=== PATIENT | female | born 1995 | race Caucasian/White ===

== ENCOUNTER 2018-06-16 08:00 | Outpatient (CLI) | payer MEDICAID ==
[2013-12-28 02:09] VITALS: Ht 162.6 cm; Wt 84.4 kg
[~2018-06-16] VITALS: Ht 162.6 cm; Wt 84.4 kg
[~2018-06-16 08:00] MED LIST: IBUPROFEN600 MG PO; PAMELOR 25 MG C25 MG PO; PERCOCET 5-3251 TAB PO; PRENATAL COMPLE1 TAB PO
[2018-06-16] MEDS ORDERED: AMITRIPTYLINE100 MG PO (10:05)
[2018-06-16] MEDS ORDERED: LITHIUM CARBON300 M3 PO (10:05)
[2018-06-16] MEDS ORDERED: SEROQUEL100 MG PO (10:06)
[2018-06-16] MEDS ORDERED: KLONOPIN1 MG PO (10:06)
[2018-06-16] MEDS ORDERED: LAMICTAL200 M1 PO (10:06)
[2018-06-16] MEDS ORDERED: NEURONTIN 300300 MG PO (10:07)
[2018-06-16] MEDS ORDERED: BYSTOLIC5 MG PO (10:09)
[2018-06-16 10:34] LABS: BASOPHILS 0.2 % (0-2); EOSINOPHILS 1.6 % (0-7); HEMATOCRIT 40.9 % (36.0-48.0); HEMOGLOBIN 13.5 g/dL (12-16); IMMATURE GRANULOCYTES 0.3 % (0-5); LYMPHOCYTES 23.3 % (15-50); MCH 30.5 pg (26.0-34.0); MCV 92.5 fL (80.0-100.0); MEAN PLATELET VOLUME 9.2 fL (7.4-10.4); MONOCYTES 6.5 % (2-11); NEUTROPHILS 68.1 % (40-80); RBC 4.42 10x6/uL (4.00-5.40); RDW 12.9 % (11.5-14.5); WBC 11.7 10x3/uL (4.8-10.8)
[2018-06-16 10:35] LABS: PLATELET COUNT 329 10x3/uL (130-400)
== END 2018-06-16 08:01 | disposition home or self-care (01) ==
LOC: D.OPS 08:00 → EDSTATUS 06-19 08:15 → D.OPS 06-19 08:15 → D.PAN 06-19 08:15 → D.OPS 06-19 09:30
PROVIDERS: ATTEND Obstetrics & Gynecology
DX: Z53.9 Procedure and treatment not carried out, unspecified reason (principal)

== ENCOUNTER 2018-11-27 08:00 | Day surgery (SDC) | payer MEDICAID ==
[2018-11-24 10:48] LABS: BASOPHILS 0.2 % (0-2); EOSINOPHILS 2.2 % (0-7); HEMATOCRIT 39.2 % (36.0-48.0); HEMOGLOBIN 13.4 g/dL (12-16); IMMATURE GRANULOCYTES 0.1 % (0-5); LYMPHOCYTES 30.9 % (15-50); MCH 32.1 pg (26.0-34.0); MCHC 34.2 g/dL (31.0-37.0); MEAN PLATELET VOLUME 9.2 fL (7.4-10.4); NEUTROPHILS 61.6 % (40-80); PLATELET COUNT 271 10x3/uL (130-400); RBC 4.17 10x6/uL (4.00-5.40); RDW 12.7 % (11.5-14.5); WBC 9.9 10x3/uL (4.8-10.8)
[~2018-11-27] VITALS: Ht 162.6 cm; Wt 78.0 kg
[~2018-11-27 08:00] MED LIST changes: +AMITRIPTYLINE100 MG PO; +BYSTOLIC5 MG PO; +KLONOPIN1 MG PO; +LAMICTAL200 M1 PO; +LITHIUM CARBON300 M3 PO; +NEURONTIN 300300 MG PO; +SEROQUEL100 MG PO
[2018-11-27] MEDS ORDERED: ADIPEX-P37.5 M1 PO (09:45)
[2018-11-27 09:46] VITALS: BP 102/68; Ht 162.6 cm; Wt 78.0 kg
[2018-11-27 10:15] LABS: HCG URINE NEGATIVE (NEGATIVE)
--- NOTE | 2018-11-27 15:18 | NUR ---
MESH UNDERWARE ON OVER PERIPAD ON ADMIT
--- NOTE | 2018-11-29 06:43 | OP ---
PATIENT NAME: JESUS CHAPA MEDICAL RECORD: [id number] :93 LOCATION:D.OPS ADMISSION DATE: SURGEON: STEPHANI DOMINGUEZ MD DATE OF OPERATION: 11/27/2018 PREOPERATIVE DIAGNOSIS: Unwanted fertility. POSTOPERATIVE DIAGNOSIS: Unwanted fertility. PROCEDURE: Bilateral tubal occlusion using Falope rings. SURGEON: Stephani Dominguez MD SOLDER TECHNICIAN: Michael Poole. ANESTHESIA: General. FINDINGS: Unremarkable uterus, tubes, and ovaries bilaterally. SPECIMENS REMOVED: Not applicable. ESTIMATED BLOOD LOSS: Minimal. FLUIDS: 1 liter of Lactated Ringer's. URINE OUTPUT: Quantity insufficient void prior to this procedure. COMPLICATIONS: None. DRAINS: None. INDICATIONS: The patient is a 23-year-old multiparous female with unwanted fertility. The patient understands alternatives to sterilization. The patient understands the possibility of ectopic gestation and the need for treatment if that was to occur. DESCRIPTION OF PROCEDURE: After informed consent was assured, the patient was taken to the operating room where anesthetic was obtained. The patient was then prepped and draped. Incision was made at the umbilicus to accommodate a 5-mm trocar. Pneumoperitoneum was developed. The patient was placed in Trendelenburg position. An 8 mm port was now placed in the right lower quadrant. Through this port, a blunt probe was used to sweep the bowel free of the pelvis with the above findings. A Falope ring applicator was doubly loaded and inserted into the pelvis. The left tube was followed to its fimbriated end and an aspect of the isthmic portion of the tube was selected and a Silastic band applied. This was repeated on the contralateral side. Once this has been performed, a 10 mL syringe with 0.25% Marcaine without epinephrine was placed over the gas port and 5 mL of Marcaine was placed directly over both right and left tube. The 8-mm port is now utilized to release the gas from the abdomen. Once the pneumoperitoneum has been released, the accessory port and primary port was removed. All sites were closed with a subcuticular stitch and Dermabond applied. Sponge, lap, and needle counts correct times 2. The patient went to the recovery area in stable condition. TRANSINT:[id number] Voice Confirmation ID: [id number] DOCUMENT ID: [id number] OPERATIVE REPORT [id number] JESUS CHAPA STEPHANI DOMINGUEZ MD at 0643 CC: [id number] DICTATION DATE: 11/27/18 1429 POOL HALL INSPECTOR: 11/27/18 1813 [facility] [place] 11/27/18 [address] [place] [address]
== END 2018-11-27 16:40 | disposition home or self-care (01) ==
LOC: D.OPS 08:00 → D.PAN 09:40 → D.OPS 09:45 → D.PAN 09:45 → D.OPS 10:00 → D.PAN 10:00 → D.OPS 12:10
PROVIDERS: ATTEND Obstetrics & Gynecology
DX: Z30.2 Encounter for sterilization (principal); Z01.812 Encounter for preprocedural laboratory examination

== ENCOUNTER 2019-11-16 12:43 | Emergency (ER) | payer OTHER ==
[~2019-11-16] VITALS: Ht 162.6 cm; Wt 63.6 kg
[~2019-11-16 12:43] MED LIST changes: +ADIPEX-P37.5 M1 PO
[2019-11-16 12:50] VITALS: BP 111/76; Ht 162.6 cm; Wt 63.6 kg
[2019-11-16] MEDS ORDERED: COREG 3.1253.125 MG PO (12:52)
== END 2019-11-16 15:34 | disposition home or self-care (01) ==
LOC: D.ER 12:43
DX: S51.812A Laceration without foreign body of left forearm, initial encounter (principal); W26.0XXA Contact with knife, initial encounter; K21.9 Gastro-esophageal reflux disease without esophagitis; F32.9 Major depressive disorder, single episode, unspecified

== ENCOUNTER 2020-08-18 15:58 | Inpatient (IN) | payer OTHER ==
[~2020-08-18] VITALS: Ht 162.6 cm; Wt 77.3 kg
[2020-08-18] VITALS (7 sets, daily range): BP systolic 120–130; BP diastolic 66–101
[~2020-08-18 15:58] MED LIST changes: +COREG 3.1253.125 MG PO; +DICLOFENAC SODI50 MG PO
[2020-08-18 17:46] LABS: BASOPHILS 0.3 % (0-2); EOSINOPHILS 1.9 % (0-7); HEMATOCRIT 42.3 % (36.0-48.0); HEMOGLOBIN 14.5 g/dL (12-16); LYMPHOCYTES 26.3 % (15-50); MCH 32.6 pg (26.0-34.0); MCHC 34.2 g/dL (31.0-37.0); MCV 95.4 fL (80.0-100.0); MONOCYTES 3.9 % (2-11); NEUTROPHILS 67.6 % (40-80); PLATELET COUNT 305 10x3/uL (130-400); RBC 4.44 10x6/uL (4.00-5.40); WBC 8.9 10x3/uL (4.8-10.8)
[2020-08-18 18:01] LABS: APTT 25.5 SECONDS (22.8-39.4); INR 1.09 (0.85-1.17)
[2020-08-18 18:07] LABS: CALC OSMOLALITY 278 mosm/kg (275-300); CALCIUM 8.8 mg/dL (8.5-10.1); CARBON DIOXIDE 24.7 mmol/L (21.0-32.0); CHLORIDE - SERUM 105 mmol/L (98-107); CREATININE - SERUM 0.8 mg/dL (0.6-1.3); GLUCOSE 84 mg/dL (74-106); POTASSIUM - SERUM 3.2 mmol/L (3.5-5.1); SODIUM 141 mmol/L (136-145); UREA NITROGEN 9 mg/dL (7-18); eGFR NON AFRICAN AMERICAN > 90 mL/min (90-120)
[2020-08-18 18:09] LABS: LITHIUM 0.95 mmol/L (0.60-1.20); SALICYLATES 2.7 mg/dL (2.8-20.0)
[2020-08-18 18:11] LABS: ALBUMIN 4.1 g/dL (3.4-5.0); ALKALINE PHOSPHATASE 91 U/L (30-120); ALT (SGPT) 23 U/L (10-68); BILIRUBIN - TOTAL 0.27 mg/dL (0.2-1.3); PROTEIN - SERUM 7.5 g/dL (6.4-8.2)
--- NOTE | 2020-08-18 19:45 | NUR ---
RECEIVED PT FROM RECOVERY ROOM, A&O X4. PIV TO RIGHT FOREARM, PATENT AND INFUSING, NO REDNESS OR SWELLING. LACERATION TO LUE, WOUND CLOSED, DRSG C/D/I, MISTY WRAP IN PLACE. PT ABLE TO AMBUALTE AD ASHLEY. EDUCATED ON SUICIDE PRECAUTIONS AND CL AND NEEDS, VERBALIZED UNDERSTANDING. BED LOW, CL IN REACH.
[2020-08-18 20:13] LABS: BILIRUBIN NEGATIVE (NEGATIVE); HCG URINE NEGATIVE (NEGATIVE); KETONE NEGATIVE (NEGATIVE); NITRITE NEGATIVE (NEGATIVE); UROBILINOGEN NORMAL mg/dL (< 2)
--- NOTE | 2020-08-18 20:15 | NUR ---
PT C/O OF WANTING TO GO HOME NOW, STATES THAT WE CANNOT KEEP HER HERE AGAINST HER WILL. SHE IS VERY UPSET AND ARGUMENTATIVE. I EDUCATED PT ON THE HOSPITAL POLICIES ON SUICIDE ATTEMPTS AND OUR RESPONSILBILITIES. SHE IS ADAMENT ON LEAVING NOW. CALLED LIO GALAN. LIO TALKED TO PT AND EXPLAINED OUR POLICY AND WHY SHE HAS TO STAY TONIGHT. WE MADE AN EXCEPTION AND ALLOWED HER MOTHER TO COME AND STAY THE NIGHT WITH HER. MD ONEIL ALSO TALKED TO PT AND EXPLAINED SITUATION AND OUR RESPONSIBILITY AFTER A SUICIDE ATTEMPT. PT IS STILL IRRIATATED AND RUDE TO THIS NURSE, FRANSISCO STEWARD AND MD ONEIL. SHE AGREES TO STAY THE NIGHT AND TALK TO PSYCH MD IN THE AM, ALTHOUGH SHE STRESSES THAT SHE IS NOT HAPPY ABOUT IT.
[2020-08-18 20:18] LABS: UDS - AMPHET NEGATIVE QUAL (NEGATIVE); UDS - BARB NEGATIVE QUAL (NEGATIVE); UDS - BENZO NEGATIVE QUAL (NEGATIVE); UDS - COCAINE NEGATIVE QUAL (NEGATIVE); UDS - OPIATE NEGATIVE QUAL (NEGATIVE); UDS - PCP NEGATIVE QUAL (NEGATIVE); UDS - THC POSITIVE QUAL (NEGATIVE)
[2020-08-19 00:05] VITALS: BP 126/83; Ht 162.6 cm; Wt 77.3 kg
[2020-08-19 04:30] VITALS: BP 97/56
--- NOTE | 2020-08-19 05:41 | NUR ---
PT REFUSES TO WEAR DIESEL SERVICE TECHNICIAN. EDUCATED AND STILL REFUSED. PT STATES THAT SHE WILL BE GOING HOME TODAY AND DOESNT NEED ANYTHING ELSE ON HER. BED LOW, CL IN REACH. SITTER OUTSIDE OF ROOM IN VIEW.
[2020-08-19 07:16] LABS: BASOPHILS 0.3 % (0-2); EOSINOPHILS 2.5 % (0-7); HEMATOCRIT 35.7 % (36.0-48.0); HEMOGLOBIN 12.5 g/dL (12-16); MCH 32.9 pg (26.0-34.0); MCHC 34.9 g/dL (31.0-37.0); MCV 94.2 fL (80.0-100.0); MEAN PLATELET VOLUME 7.3 fL (7.4-10.4); MONOCYTES 7.3 % (2-11); NEUTROPHILS 60.9 % (40-80); PLATELET COUNT 272 10x3/uL (130-400); RBC 3.78 10x6/uL (4.00-5.40); RDW 12.3 % (11.5-14.5); WBC 8.7 10x3/uL (4.8-10.8)
[2020-08-19 07:20] LABS: ALBUMIN 3.3 g/dL (3.4-5.0); ALKALINE PHOSPHATASE 74 U/L (30-120); ALT (SGPT) 18 U/L (10-68); BILIRUBIN - TOTAL 0.69 mg/dL (0.2-1.3); CALC OSMOLALITY 277 mosm/kg (275-300); CALCIUM 7.9 mg/dL (8.5-10.1); CARBON DIOXIDE 24.3 mmol/L (21.0-32.0); CHLORIDE - SERUM 108 mmol/L (98-107); CREATININE - SERUM 0.7 mg/dL (0.6-1.3); GLUCOSE 96 mg/dL (74-106); MAGNESIUM - SERUM 1.9 mg/dL (1.8-2.4); PROTEIN - SERUM 6.1 g/dL (6.4-8.2); SODIUM 140 mmol/L (136-145); UREA NITROGEN 10 mg/dL (7-18); eGFR NON AFRICAN AMERICAN > 90 mL/min (90-120)
[2020-08-19 07:25] LABS: POTASSIUM - SERUM 3.7 mmol/L (3.5-5.1)
--- NOTE | 2020-08-19 08:05 | NUR ---
AWAKE AND ALERT. ORIENTED X3. NO C/O AT THIS TIME. LUNGS ARE CLEAR BILATERALLY, NO COUGH NOTED. SKIN IS INTACT WITHOUT REDNESS EXCEPT INCISION TO LEFT FOREARM WHICH HAS A DRY INTACT DRESSING IN PLACE. CAP REFILL IS BRISK, MOVES DIGITS FREELY. IV TO RIGHT AC AREA IS PATENT WITHOUT REDNESS AT INSERTION SITE. DENIES NEEDS.
[2020-08-19 08:56] VITALS: BP 109/68
--- NOTE | 2020-08-19 10:05 | NUR ---
REQUESTED AND GIVEN 650MG TYLENOL PO FOR C/O LEFT ARM. WILL MONITOR.
--- NOTE | 2020-08-19 10:05 | NUR ---
ATE MOST OF BREAKFAST TRAY. NO MEDS AT THIS TIME. DENIES NEEDS.
[2020-08-19 11:59] VITALS: BP 106/62
--- NOTE | 2020-08-19 12:30 | NUR ---
LUNCH SERVED IN ROOM. FEEDS SELF WITH SOME SET UP ASSIST. DENIES NEEDS.
--- NOTE | 2020-08-19 12:47 | NUR ---
SPOKE WITH DR. ONEIL RE PAIN MEDS. NEW ORDERS RECEIVED. REQUESTED AND GIVEN 5MG HYDORCODONE PO FOR C/O LEFT ARM PAIN LEVEL 9. WILL MONITOR.
--- NOTE | 2020-08-19 15:23 | NUR ---
RESTING QUIETLY IN BED. DENIES NEEDS. REPORTS GOOD RELEIF FROM HYDRO EARLIER. WILL CONTINUE TO MONITOR.
[2020-08-19 17:00] VITALS: BP 114/74
--- NOTE | 2020-08-19 17:00 | NUR ---
UP TO SHOWER WITH SET UP ASSIST. BEHAVING WELL TODAY. ALLOWED TO CALL MOTHER FOR 5 MINUTES. NO CHANGES NOTED. DENIES NEEDS.
[2020-08-19 19:35] VITALS: BP 117/74
--- NOTE | 2020-08-20 02:49 | NUR ---
I have reviewed this patient and I concur with the Shift Assessment completed by the Licensed Practical Nurse today this shift.
[2020-08-20 05:15] VITALS: BP 110/65
[2020-08-20 06:38] LABS: BASOPHILS 0.4 % (0-2); EOSINOPHILS 2.8 % (0-7); HEMATOCRIT 36.3 % (36.0-48.0); HEMOGLOBIN 12.3 g/dL (12-16); LYMPHOCYTES 42.8 % (15-50); MCH 32.5 pg (26.0-34.0); MCV 95.7 fL (80.0-100.0); MEAN PLATELET VOLUME 7.4 fL (7.4-10.4); MONOCYTES 6.4 % (2-11); NEUTROPHILS 47.6 % (40-80); PLATELET COUNT 252 10x3/uL (130-400); RBC 3.79 10x6/uL (4.00-5.40); RDW 12.2 % (11.5-14.5)
[2020-08-20 06:58] LABS: ALBUMIN 3.1 g/dL (3.4-5.0); ALKALINE PHOSPHATASE 80 U/L (30-120); ALT (SGPT) 18 U/L (10-68); BILIRUBIN - TOTAL 0.32 mg/dL (0.2-1.3); CALC OSMOLALITY 283 mosm/kg (275-300); CALCIUM 8.3 mg/dL (8.5-10.1); CHLORIDE - SERUM 111 mmol/L (98-107); CREATININE - SERUM 0.6 mg/dL (0.6-1.3); GLUCOSE 92 mg/dL (74-106); POTASSIUM - SERUM 3.8 mmol/L (3.5-5.1); PROTEIN - SERUM 6.2 g/dL (6.4-8.2); SODIUM 143 mmol/L (136-145); UREA NITROGEN 9 mg/dL (7-18); eGFR NON AFRICAN AMERICAN > 90 mL/min (90-120)
[2020-08-20 08:11] VITALS: BP 102/65
--- NOTE | 2020-08-20 09:41 | NUR ---
PATIENT C/O MISTY WRAP ON LEFT ARM TOO TIGHT. CATEGORY PLANNERAjay RUSSO IN ROOM REMOVED DRSG. ALL PULSES IN LEFT ARM STRONG. ASSESSMENT OF INCISION SITE COMPLETED BY CATEGORY PLANNER IN ROOM AND ARM REDRESSED. PATIENT DENIES FURTHER NEEDS.
--- NOTE | 2020-08-20 09:56 | OP ---
PATIENT NAME: JESUS CHAPA MEDICAL RECORD: [id number] :93 LOCATION:D.MS [id number] ADMISSION DATE:08/18/20 SURGEON: EARL ONEIL MD DATE OF OPERATION: 08/18/2020 PREOPERATIVE DIAGNOSIS: Self-inflicted laceration to the volar surface of the left forearm. POSTOPERATIVE DIAGNOSES: Self-inflicted laceration to the volar surface of the left forearm with partial transection of 2 muscle bundles. PROCEDURE: Exploration of forearm muscular repair and repair of laceration. The patient has sensory defect involving the volar surface of the left forearm distal to the laceration. I think this is likely due to a laceration of a sensory or sensory nerves. This is likely not going to be repairable and I was unable to identify the nerves during this repair. The length of the laceration is 7.2 cm and has a transverse laceration of the volar surface of the left proximal forearm. OPERATIVE COURSE: The patient was conveyed to the operating room electively, maybe urgently on 08/18/2020. General anesthesia was induced by the anesthesia staff. The patient's left upper extremity was abducted at 90 degrees to the patient's trunk. The left upper extremity was sterilely prepped and draped. The wrist was supinated. I explored the wound. There were 2 muscle bundles likely the pronator and the supinator that were partially transected. I repaired the muscular fascia with interrupted horizontal mattress 3-0 Vicryls. Again, the wound was further repaired. The subdermis was approximated with interrupted 2-0 Vicryls. The skin was approximated with multiple interrupted horizontal mattress 2-0 nylons. A sterile dressing was applied. The patient was then placed in a splint. The patient was then extubated and conveyed to post-anesthesia care unit where she was in stable condition. She is going to be admitted overnight and the hospitalist service will be consulted. Her primary care physician is Dr. Palacios. I will plan for a psychiatry consultation as well. TRANSINT:[id number] Voice Confirmation ID: [id number] DOCUMENT ID: [id number] EARL ONEIL MD at 0956 CC: [id number] DICTATION DATE: 08/18/201920 BUNDLE SORTER: 08/18/202242 ADM IN [facility] [address] [id number]
--- NOTE | 2020-08-20 09:56 | HP ---
PATIENT: JESUS CHAPA MEDICAL RECORD: [id number] ACCOUNT: [id number] LOCATION:D.MS Colon3 : 93 ADMISSION DATE: 08/18/20 PCP: No PCP HISTORY AND PHYSICAL EXAMINATION HISTORY OF PRESENT ILLNESS: The patient presents to the Emergency Room with a transverse laceration to the left forearm. There was very little bleeding. She does complain of some numbness on the volar surface of the left forearm distal to this, which likely is an injury to the antebrachial nerve. This likely will not improve. This was a suicide attempt. This has been a repeat occurrence. She has a history of bipolar disorder as well as being suicidal. The patient has good flexion and extension of the left fingers. She has good opponens function in the left hand. Good flexion and extension of the left wrist. Good supinator function, but a little weak in pronation. Good flexion and extension at the left elbow. We are planning for operative repair. It appears that she did injure a muscle bundle. Plan for a washout in the operating room and repair. The patient's interaction with me was dissatisfactory. I have attempted to recover our interaction from that dissatisfactory experience, but I do not think is going to happen. The entire history and examination was performed in the presence of several nurses. The risks, possible complications, and alternatives of the procedure were explained to the patient. She elects to proceed. The discussion specifically included, but was not limited to, bleeding requiring emergency reoperation, infection, nerve injury. PHYSICAL EXAMINATION: GENERAL: The patient does not appear acutely ill. She does not appear chronically ill. VITAL SIGNS: Reviewed. EARS: External ears appear normal. EYES: Extraocular movements are intact. NECK: Trachea midline. CHEST: No intercostal retractions. PULMONARY: Nonlabored. No stridor. EXTREMITIES: As described above. The patient has good pulses at the left wrist, in the radial artery as well as in the ulnar artery. There is no arterial bleeding in the left upper extremity. Actually very little venous bleeding as well. There is a scar near the patient's current transverse self-inflicted incision and this is from a prior cutting or suicide attempt. HOME MEDICINES: Reviewed. REVIEW OF SYSTEMS: Negative other than as described above. IMPRESSION: Suicide attempt with transverse laceration to the left forearm that HISTORY AND PHYSICAL [id number] JESUS CHAPA goes down to and into a muscle bundle. There appears to be a peripheral sensory nerve injury as well, which likely will not be able to be repaired. PLAN: Will be irrigation and closure in the operating room. TRANSINT:[id number] Voice Confirmation ID: [id number] DOCUMENT ID: [id number] EARL ONEIL MD at 0956 CC: DI MURPHY MD [id number] DICTATION DATE: 08/18/201750 ELECTRO MECHANICAL TECHNOLOGIST: 08/18/[address] [address] [facility] [address] [id number]
[2020-08-20 12:25] VITALS: BP 111/71
--- NOTE | 2020-08-20 12:46 | CN ---
PATIENT NAME:JESUS CHAPA MEDICAL RECORD: [id number] : 93 LOCATION:D.MS Colon3 ADMIT DATE: 08/18/20 ACCOUNT: [id number] CONSULTING PHYSICIAN: KATELYN MUÑIZ MD REFERRING PHYSICIAN: EARL ONEIL MD DATE OF CONSULTATION: 08/19/2020 IDENTIFYING DATA: The patient is 25 years old and she was admitted to the hospital secondary to a self-inflicted laceration to her left forearm. CHIEF COMPLAINT: None. HISTORY OF PRESENT ILLNESS: The patient is dismissive about the entire event. She talks with me politely until I told her that I am not going to allow her to just go home, at which point she becomes slightly belligerent and rude. She has a long history of mental illness, history of bipolar disorder, and multiple suicidal attempts. She tells me that this is just something that happens periodically and that she did not intend to cut herself so deeply. The laceration required surgical repair and the impression of the surgeon is that this is probably will lead to some permanent nerve damage. She wants me to just discharge her and let her go home, saying that she does not think inpatient care has ever helped her. She also wants adjustments in her medication. ASSESSMENT: 1. Bipolar disorder. 2. Self-inflicted wound to the left forearm. PLAN: The patient is chronically mentally ill with a history of suicide attempts. She has been hospitalized in the past. Apparently, she is on disability for mental illness. I think the most reasonable course of action would be an inpatient stay. She tells me she does not want to go back to a [facility], but I have informed her that placement will be based on the closest accepting facility. The patient should be kept 1:1 with a sitter until medically stabilized and placement can be arranged. TRANSINT:[id number] Voice Confirmation ID: [id number] DOCUMENT ID: [id number] KATELYN MUÑIZ MD at 1246 CC: [id number] DICTATION DATE: 08/19/20 1616 SECURITY OFFICER: 08/19/20 1635 ADM IN [id number] [place] [address]
--- NOTE | 2020-08-20 14:10 | MORECARE ---
CASE MANAGEMENT DISCHARGE SUMMARY PATIENT: JESUS CHAPA UNIT: [id number] ADM DATE: 08/18/20 AGE: 25 : 93 SEX: F [facility] AUTHOR: PAWAN,DOC PHYSICIAN: REFERRING PHYSICIAN: EARL ONEIL MD DATE OF SERVICE: 08/20/20 Case Management Discharge Planning Summary DCP REVIEW SUMMARY ANTICIPATED D/C DATE: EXPECTED LOS : CASE STATUS: DCP Initiated INITIAL REVIEW: 08/18/2020 INITIAL REVIEWER: Jess Jack FINAL DISCHARGE DISPOSITION: : FINAL REVIEWER: FINAL REVIEW DATE: DCP Focus Questions & Answers QUESTION: ANSWER : PATIENT: JESUS CHAPA ENCOUNTER: [id number] MEDICAL RECORD#: [id number] ADMISSION DATE: 08/18/2020 DISCHARGE DATE: ATTENDING MD: EARL CLEMENTS : AGE: 25 MARITAL STATUS: S DC PLAN ID: [id number] FACILITY: [facility] PRINTED ON: 08/20/20 14:10 CT All edits/amendments must be made on the electronic document DICTATION DATE: 08/20/20 141 MARKSMANSHIP INSTRUCTOR: DM 08/20/20 1410 RPT#: [id number] DC DATE: STATUS: ADM IN [facility] [address] [place] [address] END OF REPORT
--- NOTE | 2020-08-20 14:27 | NUR ---
OK TO LEAVE OUT IV PER PAUL RUSSO.
--- NOTE | 2020-08-20 14:28 | NUR ---
NEW ORDER PLACED FOR ONE TIME NICOTINE PATCH PER PAUL RUSSO, D/T CAME OFF IN SHOWER.
--- NOTE | 2020-08-20 14:35 | MORECARE ---
CASE MANAGEMENT DISCHARGE SUMMARY PATIENT: JESUS CHAPA UNIT: [id number] ADM DATE: 08/18/20 AGE: 25 : 93 SEX: F ROOM/BED: D.2213 AUTHOR: ALANIS VILLALTA PHYSICIAN: REFERRING PHYSICIAN: EARL ONEIL MD DATE OF SERVICE: 08/20/20 Case Management Discharge Planning Summary COMMENTS ENTERED DATE: 08/20/20 14:15 CT COMMENT TYPE: Discharge Planning REVIEWER: Jess Jack CM met with patient to complete initial dc planning assessment. CM educated patient on the CM role and verbal consent given by patient to complete assessment. Patient lives at home with her and her 2 kids (6&3). She stated that she would like to go home and does not need inpatient psych. She said that this incident scared her and she realizes that she has a reason to live. She stated that she use to think that her kids just needed their dad, but since she stated that they have been crying for her and she knows that they need both parents. She stated that her and her have been together for 10 years and recently just moved into a brand new home. She states that Dr Palacios is her PCP. She states she see's Alysa at [facility] ( but only twice) because they keep witching her mental health person. She usually see's her once a month. She also see's Mary Beth Ahn her Therapist 2 times a month but has now asked to see him once a week. She has spoken to her about him giving her the medications. She can't keep up with them and then forgets to take them . She said that when she gets off her medications she gets bad. She was in [facility] back in 2019 and has been in [facility] back in 2016. She stated that she has a great relationship with her mom and dad. She they live around the corner. Her sister and brother in law live close by . She feels that she has a good support system. She really feels that she is safe to discharge home. I explained to her that I would call Dr Thompson and share her feelings now, but ultimately the MD will decide what and where she goes. IF she has to go to an inpatient psych, [facility] would be her choice because it is local. Patient denied known discharge needs at this time. She continues to have a 1:1 sitter. CM will continue to follow and will assist as needed with dc plans/needs. DCP REVIEW SUMMARY ANTICIPATED D/C DATE: EXPECTED LOS : CASE STATUS: DCP Initiated INITIAL REVIEW: 08/18/2020 INITIAL REVIEWER: Jess Jack FINAL DISCHARGE DISPOSITION: : FINAL REVIEWER: FINAL REVIEW DATE: DCP Focus Questions & Answers QUESTION: ANSWER : PATIENT: JESUS CHAPA ENCOUNTER: [id number] MEDICAL RECORD#: [id number] ADMISSION DATE: 08/18/2020 DISCHARGE DATE: ATTENDING MD: EARL CLEMENTS : AGE: 25 MARITAL STATUS: S DC PLAN ID: [id number] FACILITY: [facility] PRINTED ON: 08/20/20 14:34 CT All edits/amendments must be made on the electronic document DICTATION DATE: 08/20/201433 BOAT WASHER: BENI 08/20/20 143 RPT#: [id number] DC DATE: STATUS: ADM IN [facility] [address] [place] [address] END OF REPORT
[2020-08-20 16:19] VITALS: BP 95/74
--- NOTE | 2020-08-20 19:45 | NUR ---
RECEIVED BEDSIDE REPORT. PT LAYING IN BED A&O X4. INCISION TO QIANA HOLLIDAY C/D/I. PT ABLE TO AMBUALTE AD ASHLEY. EDUCATED PT ON CL AND NEEDS, VERBALIED UNDERSTANDING. BED LOW, CL IN REACH.
[2020-08-20 20:00] VITALS: BP 124/80
[2020-08-21 04:00] VITALS: BP 106/75
[2020-08-21 06:23] LABS: BASOPHILS 0.3 % (0-2); EOSINOPHILS 3.3 % (0-7); HEMOGLOBIN 13.5 g/dL (12-16); LYMPHOCYTES 38.8 % (15-50); MCH 32.7 pg (26.0-34.0); MCHC 33.8 g/dL (31.0-37.0); MCV 96.8 fL (80.0-100.0); MEAN PLATELET VOLUME 7.5 fL (7.4-10.4); MONOCYTES 6.1 % (2-11); NEUTROPHILS 51.5 % (40-80); PLATELET COUNT 261 10x3/uL (130-400); RBC 4.13 10x6/uL (4.00-5.40); RDW 12.4 % (11.5-14.5); WBC 7.7 10x3/uL (4.8-10.8)
[2020-08-21 06:45] LABS: ALBUMIN 3.6 g/dL (3.4-5.0); ALKALINE PHOSPHATASE 83 U/L (30-120); ALT (SGPT) 16 U/L (10-68); BILIRUBIN - TOTAL 0.37 mg/dL (0.2-1.3); CALC OSMOLALITY 277 mosm/kg (275-300); CALCIUM 9.2 mg/dL (8.5-10.1); CARBON DIOXIDE 25.1 mmol/L (21.0-32.0); CHLORIDE - SERUM 106 mmol/L (98-107); CREATININE - SERUM 0.7 mg/dL (0.6-1.3); GLUCOSE 90 mg/dL (74-106); MAGNESIUM - SERUM 2.1 mg/dL (1.8-2.4); POTASSIUM - SERUM 3.9 mmol/L (3.5-5.1); PROTEIN - SERUM 7.2 g/dL (6.4-8.2); SODIUM 139 mmol/L (136-145); eGFR NON AFRICAN AMERICAN > 90 mL/min (90-120)
[2020-08-21 06:46] LABS: UREA NITROGEN 13 mg/dL (7-18)
--- NOTE | 2020-08-21 07:38 | NUR ---
ALERT AND ORIENTED. ASSESSMENT COMPLETE. DENIES NEEDS. BED LOW. CALL KAUFMAN AND PERSONAL ITEMS IN REACH. WILL CONTINUE TO MONITOR.
[2020-08-21 09:52] VITALS: BP 137/93
[2020-08-21 12:36] VITALS: BP 131/85
--- NOTE | 2020-08-21 13:20 | NUR ---
PATIENT STATES IF CAN'T GET INTO [facility] TODAY, WANTS TO TALK TO CM ABOUT OTHER OPTIONS. JUST WANTS TO BE ABLE TO DC TODAY. TERRY SANTOS MADE AWARE.
--- NOTE | 2020-08-21 13:21 | MORECARE ---
CASE MANAGEMENT DISCHARGE SUMMARY PATIENT: JESUS CHAPA UNIT: [id number] ADM DATE: 08/20/20 AGE: 25 : 93 SEX: F ROOM/BED: D.2213 AUTHOR: ALANIS VILLALTA PHYSICIAN: REFERRING PHYSICIAN: EARL ONEIL MD DATE OF SERVICE: 08/21/20 Case Management Discharge Planning Summary COMMENTS ENTERED DATE: 08/21/20 13:13 CT COMMENT TYPE: Discharge Planning REVIEWER: Jess Jack SPOKE WITH SHANKAR AT [facility] ABOUT REFERRAL, I SENT THE REFERRAL TO [phone] SHE WILL GET BACK WITH ME CM TO FOLLOW AND ASSIST NEEDED ENTERED DATE: 08/20/20 14:15 CT COMMENT TYPE: Discharge Planning REVIEWER: Jess Jack CM met with patient to complete initial dc planning assessment. CM educated patient on the CM role and verbal consent given by patient to complete assessment. Patient lives at home with her and her 2 kids (6&3). She stated that she would like to go home and does not need inpatient psych. She said that this incident scared her and she realizes that she has a reason to live. She stated that she use to think that her kids just needed their dad, but since she stated that they have been crying for her and she knows that they need both parents. She stated that her and her have been together for 10 years and recently just moved into a brand new home. She states that Dr Palacios is her PCP. She states she see's Alysa at [facility] ( but only twice) because they keep witching her mental health person. She usually see's her once a month. She also see's Mary Beth Ahn her Therapist 2 times a month but has now asked to see him once a week. She has spoken to her about him giving her the medications. She can't keep up with them and then forgets to take them . She said that when she gets off her medications she gets bad. She was in [facility] back in 2019 and has been in [facility] back in 2016. She stated that she has a great relationship with her mom and dad. She they live around the corner. Her sister and brother in law live close by . She feels that she has a good support system. She really feels that she is safe to discharge home. I explained to her that I would call Dr Thompson and share her feelings now, but ultimately the MD will decide what and where she goes. IF she has to go to an inpatient psych, [facility] would be her choice because it is local. Patient denied known discharge needs at this time. She continues to have a 1:1 sitter. CM will continue to follow and will assist as needed with dc plans/needs. DCP REVIEW SUMMARY ANTICIPATED D/C DATE: EXPECTED LOS : CASE STATUS: DCP Initiated INITIAL REVIEW: 08/18/2020 INITIAL REVIEWER: Jess Jack FINAL DISCHARGE DISPOSITION: : FINAL REVIEWER: FINAL REVIEW DATE: DCP Focus Questions & Answers QUESTION: ANSWER : PATIENT: JESUS CHAPA ENCOUNTER: [id number] MEDICAL RECORD#: [id number] ADMISSION DATE: 08/20/2020 DISCHARGE DATE: ATTENDING MD: EARL CLEMENTS : AGE: 25 MARITAL STATUS: S DC PLAN ID: [id number] FACILITY: [facility] PRINTED ON: 08/21/20 13:21 CT All edits/amendments must be made on the electronic document DICTATION DATE: 08/21/20 132 PROJECT SUPERINTENDENT: BENI 08/21/20 1321 RPT#: [id number] DC DATE: STATUS: ADM IN [facility] [address] [place] [address] END OF REPORT
--- NOTE | 2020-08-21 15:14 | PN ---
PATIENT:JESUS CHAPA MEDICAL RECORD: [id number] LOCATION:D.MS eBard221 ADMISSION DATE: 08/20/20 PROGRESS NOTE DATE OF SERVICE: 08/20/2020 IDENTIFYING DATA SUBJECTIVE: The patient's case was discussed with staff. She has no new complaint. OBJECTIVE: The patient denies that she would seek to harm herself. She is fully oriented. She does have mood lability. She denies psychotic symptoms. She says she feels better since being started back on her medicine and has gained insight about her situation. ASSESSMENT: Bipolar disorder. PLAN: I am not changing my recommendation regarding a period of inpatient observation for several reasons. 1. The patient is hospitalized on a medical floor and is not being seen by mental health professionals or nursing staff accustomed to interacting with an observing the mood state and behaviors of psychiatric patients. Given what happened, I believe that it is prudent and beyond prudent necessary that she be observed. 2. The patient is only 25 years old and has a 13-year history of mental health treatment that includes numerous hospitalizations and numerous attempts to harm herself. 3. The patient made a very serious attempt on her life. She cut herself so deeply that it required surgical intervention to repair and her left arm is in a full body sleeve bandage. 4. The patient is not back on all of her medications nor have the medications been observed or titrated to appropriate levels. 5. The patient could very well be saying that she does not want to hurt herself, so that she could be released and then could go home and complete the task. Nothing has changed in her situation that would merit this reversal in her thinking and it is entirely conceivable and in fact happens on a regular basis that those intent upon harming theme self and/or harming their children perhaps misrepresent the situation, so as to be afforded the opportunity to complete the task. 6. The patient is still having mood lability and if her appraisal of her current circumstances are correct and I hope they are and believe probably that they are, the mood lability she is having could still just as precipitously change from not suicidal to suicidal, just as a change from being suicidal to not suicidal. All of these conditions are important factors to consider and in my opinion, she does require a brief period of inpatient observation on a behavioral unit and additional titration and restarting of her home psychotropic medications. She tells me that she also should be taking Lamictal and Seroquel, but becomes angry with me when I tell her that I am not going to change my mind about the recommendation. TRANSINT:[id number] Voice Confirmation ID: [id number] DOCUMENT ID: [id number] PROGRESS NOTE [id number] JESUS CHAPA PETER MD at 1514 CC: [id number] DICTATION DATE: 08/20/201701 HOME SERVICE DIRECTOR: 08/21/20 0041 ADM IN [id number] [place] [address]
--- NOTE | 2020-08-21 15:36 | MORECARE ---
CASE MANAGEMENT DISCHARGE SUMMARY PATIENT: JESUS CHAPA UNIT: [id number] ADM DATE: 08/20/20 AGE: 25 : 89 SEX: F ROOM/BED: D.2213 AUTHOR: PAWAN,DOC PHYSICIAN: REFERRING PHYSICIAN: EARL ONEIL MD DATE OF SERVICE: 08/21/20 Case Management Discharge Planning Summary COMMENTS ENTERED DATE: 08/21/20 15:25 CT COMMENT TYPE: Discharge Planning REVIEWER: Jess Jack PATIENT IS ACCEPTED TO [facility] ROOM 409-2 NURSE WILL CALL REPORT AND SHE WILL BE TRANSFERED VIA EMS ENTERED DATE: 08/21/20 13:13 CT COMMENT TYPE: Discharge Planning REVIEWER: Jess Jack SPOKE WITH SHANKAR AT [facility] ABOUT REFERRAL, I SENT THE REFERRAL TO [phone] SHE WILL GET BACK WITH ME CM TO FOLLOW AND ASSIST NEEDED ENTERED DATE: 08/20/20 14:15 CT COMMENT TYPE: Discharge Planning REVIEWER: Jess Jack CM met with patient to complete initial dc planning assessment. CM educated patient on the CM role and verbal consent given by patient to complete assessment. Patient lives at home with her and her 2 kids (6&3). She stated that she would like to go home and does not need inpatient psych. She said that this incident scared her and she realizes that she has a reason to live. She stated that she use to think that her kids just needed their dad, but since she stated that they have been crying for her and she knows that they need both parents. She stated that her and her have been together for 10 years and recently just moved into a brand new home. She states that Dr Palacios is her PCP. She states she see's Alysa at [facility] ( but only twice) because they keep witching her mental health person. She usually see's her once a month. She also see's Mary Beth Ahn her Therapist 2 times a month but has now asked to see him once a week. She has spoken to her about him giving her the medications. She can't keep up with them and then forgets to take them . She said that when she gets off her medications she gets bad. She was in [facility] back in 2019 and has been in [facility] back in 2016. She stated that she has a great relationship with her mom and dad. She they live around the corner. Her sister and brother in law live close by . She feels that she has a good support system. She really feels that she is safe to discharge home. I explained to her that I would call Dr Thompson and share her feelings now, but ultimately the MD will decide what and where she goes. IF she has to go to an inpatient psych, [facility] would be her choice because it is local. Patient denied known discharge needs at this time. She continues to have a 1:1 sitter. CM will continue to follow and will assist as needed with dc plans/needs. DCP REVIEW SUMMARY ANTICIPATED D/C DATE: EXPECTED LOS : CASE STATUS: DCP Initiated INITIAL REVIEW: 08/18/2020 INITIAL REVIEWER: Jess Jack FINAL DISCHARGE DISPOSITION: : FINAL REVIEWER: FINAL REVIEW DATE: DCP Focus Questions & Answers QUESTION: ANSWER : PATIENT: JESUS CHAPA ENCOUNTER: [id number] MEDICAL RECORD#: [id number] ADMISSION DATE: 08/20/2020 DISCHARGE DATE: ATTENDING MD: EARL CLEMENTS : AGE: 25 MARITAL STATUS: S DC PLAN ID: [id number] FACILITY: [facility] PRINTED ON: 08/21/20 15:36 CT All edits/amendments must be made on the electronic document DICTATION DATE: 08/21/20 1536 INSURANCE FOLLOW UP REPRESENTATIVE: BENI 08/21/20 153 RPT#: [id number] DC DATE: STATUS: ADM IN [facility] [address] [place] [address] END OF REPORT
--- NOTE | 2020-08-21 16:22 | NUR ---
DC EDUCATION PROVIDED BOTH WRITTEN AND VERBAL. VERBALIZED UNDERSTANDING. DENIES FURTHER QUESTIONS. WAITING AMBULANCE.
--- NOTE | 2020-08-21 17:30 | NUR ---
PATIENT DC TO [facility] WITH ALL BELONGINGS.
--- NOTE | 2020-08-21 17:35 | MORECARE ---
CASE MANAGEMENT DISCHARGE SUMMARY PATIENT: JESUS CHAPA UNIT: [id number] ADM DATE: 08/20/20 AGE: 25 : 93 SEX: F ROOM/BED: D.2213 AUTHOR: PAWAN,DOC PHYSICIAN: REFERRING PHYSICIAN: EARL ONEIL MD DATE OF SERVICE: 08/21/20 Case Management Discharge Planning Summary COMMENTS ENTERED DATE: 08/21/20 15:25 CT COMMENT TYPE: Discharge Planning REVIEWER: Jess Jack PATIENT IS ACCEPTED TO [facility] ROOM 409-2 NURSE WILL CALL REPORT AND SHE WILL BE TRANSFERED VIA EMS ENTERED DATE: 08/21/20 13:13 CT COMMENT TYPE: Discharge Planning REVIEWER: Jess Jack SPOKE WITH SHANKAR AT [facility] ABOUT REFERRAL, I SENT THE REFERRAL TO [phone] SHE WILL GET BACK WITH ME CM TO FOLLOW AND ASSIST NEEDED ENTERED DATE: 08/20/20 14:15 CT COMMENT TYPE: Discharge Planning REVIEWER: Jess Jack CM met with patient to complete initial dc planning assessment. CM educated patient on the CM role and verbal consent given by patient to complete assessment. Patient lives at home with her and her 2 kids (6&3). She stated that she would like to go home and does not need inpatient psych. She said that this incident scared her and she realizes that she has a reason to live. She stated that she use to think that her kids just needed their dad, but since she stated that they have been crying for her and she knows that they need both parents. She stated that her and her have been together for 10 years and recently just moved into a brand new home. She states that Dr Palacios is her PCP. She states she see's Alysa at [facility] ( but only twice) because they keep witching her mental health person. She usually see's her once a month. She also see's Mary Beth Ahn her Therapist 2 times a month but has now asked to see him once a week. She has spoken to her about him giving her the medications. She can't keep up with them and then forgets to take them . She said that when she gets off her medications she gets bad. She was in [facility] back in 2019 and has been in [facility] back in 2016. She stated that she has a great relationship with her mom and dad. She they live around the corner. Her sister and brother in law live close by . She feels that she has a good support system. She really feels that she is safe to discharge home. I explained to her that I would call Dr Thompson and share her feelings now, but ultimately the MD will decide what and where she goes. IF she has to go to an inpatient psych, [facility] would be her choice because it is local. Patient denied known discharge needs at this time. She continues to have a 1:1 sitter. CM will continue to follow and will assist as needed with dc plans/needs. DCP REVIEW SUMMARY ANTICIPATED D/C DATE: EXPECTED LOS : CASE STATUS: DCP Initiated INITIAL REVIEW: 08/18/2020 INITIAL REVIEWER: Jess Jack FINAL DISCHARGE DISPOSITION: : FINAL REVIEWER: FINAL REVIEW DATE: DCP Focus Questions & Answers QUESTION: ANSWER : PATIENT: JESUS CHAPA ENCOUNTER: [id number] MEDICAL RECORD#: [id number] ADMISSION DATE: 08/20/2020 DISCHARGE DATE: 08/21/2020 ATTENDING MD: EARL CLEMENTS : AGE: 25 MARITAL STATUS: S DC PLAN ID: [id number] FACILITY: [facility] PRINTED ON: 08/21/20 17:35 CT All edits/amendments must be made on the electronic document DICTATION DATE: 08/21/201734 FLOOR INSTALLATION MECHANIC: BENI 08/21/201734 RPT#: [id number] DC DATE:08/21/20 STATUS: DIS IN [facility] [address] [place] [address] END OF REPORT
--- NOTE | 2020-08-22 10:02 | MORECARE ---
CASE MANAGEMENT DISCHARGE SUMMARY PATIENT: JESUS CHAPA UNIT: [id number] ADM DATE: 08/20/20 AGE: 25 : 93 SEX: F ROOM/BED: D.2213 AUTHOR: PAWAN,DOC PHYSICIAN: REFERRING PHYSICIAN: EARL ONEIL MD DATE OF SERVICE: 08/22/20 Case Management Discharge Planning Summary COMMENTS ENTERED DATE: 08/21/20 15:25 CT COMMENT TYPE: Discharge Planning REVIEWER: Jess Jack PATIENT IS ACCEPTED TO [facility] ROOM 409-2 NURSE WILL CALL REPORT AND SHE WILL BE TRANSFERED VIA EMS ENTERED DATE: 08/21/20 13:13 CT COMMENT TYPE: Discharge Planning REVIEWER: Jess Jack SPOKE WITH SHANKAR AT [facility] ABOUT REFERRAL, I SENT THE REFERRAL TO [phone] SHE WILL GET BACK WITH ME CM TO FOLLOW AND ASSIST NEEDED ENTERED DATE: 08/20/20 14:15 CT COMMENT TYPE: Discharge Planning REVIEWER: Jess Jack CM met with patient to complete initial dc planning assessment. CM educated patient on the CM role and verbal consent given by patient to complete assessment. Patient lives at home with her and her 2 kids (6&3). She stated that she would like to go home and does not need inpatient psych. She said that this incident scared her and she realizes that she has a reason to live. She stated that she use to think that her kids just needed their dad, but since she stated that they have been crying for her and she knows that they need both parents. She stated that her and her have been together for 10 years and recently just moved into a brand new home. She states that Dr Palacios is her PCP. She states she see's Alysa at [facility] ( but only twice) because they keep witching her mental health person. She usually see's her once a month. She also see's Mary Beth Ahn her Therapist 2 times a month but has now asked to see him once a week. She has spoken to her about him giving her the medications. She can't keep up with them and then forgets to take them . She said that when she gets off her medications she gets bad. She was in [facility] back in 2019 and has been in [facility] back in 2016. She stated that she has a great relationship with her mom and dad. She they live around the corner. Her sister and brother in law live close by . She feels that she has a good support system. She really feels that she is safe to discharge home. I explained to her that I would call Dr Thompson and share her feelings now, but ultimately the MD will decide what and where she goes. IF she has to go to an inpatient psych, [facility] would be her choice because it is local. Patient denied known discharge needs at this time. She continues to have a 1:1 sitter. CM will continue to follow and will assist as needed with dc plans/needs. DCP REVIEW SUMMARY ANTICIPATED D/C DATE: EXPECTED LOS : 0 CASE STATUS: DCP Complete INITIAL REVIEW: 08/18/2020 INITIAL REVIEWER: Jess Jack FINAL DISCHARGE DISPOSITION: 89 : Discharged/Trans to a psychiatric distinct part unit of a hospital with a planned acute care FINAL REVIEWER: Jess Jack FINAL REVIEW DATE: 08/22/2020 DCP Focus Questions & Answers QUESTION: ANSWER : PATIENT: JESUS CHAPA ENCOUNTER: [id number] MEDICAL RECORD#: [id number] ADMISSION DATE: 08/20/2020 DISCHARGE DATE: 08/21/2020 ATTENDING MD: EARL CLEMENTS : AGE: 25 MARITAL STATUS: S DC PLAN ID: [id number] FACILITY: [facility] PRINTED ON: 08/22/20 10:02 CT All edits/amendments must be made on the electronic document DICTATION DATE: 08/22/20 1002 INDUSTRIAL ENGINEER: BENI 08/22/20 1002 RPT#: [id number] DC DATE:08/21/20 STATUS: DIS IN [facility] [address] [place] [address] END OF REPORT
--- NOTE | 2020-08-25 12:43 | MORECARE ---
CASE MANAGEMENT DISCHARGE SUMMARY PATIENT: JESUS CHAPA UNIT: [id number] ADM DATE: 08/20/20 AGE: 25 : 89 SEX: F ROOM/BED: D.2213 AUTHOR: PAWAN,DOC PHYSICIAN: REFERRING PHYSICIAN: EARL ONEIL MD DATE OF SERVICE: 08/25/20 Case Management Discharge Planning Summary COMMENTS ENTERED DATE: 08/21/20 15:25 CT COMMENT TYPE: Discharge Planning REVIEWER: Jess Jack PATIENT IS ACCEPTED TO [facility] ROOM 409-2 NURSE WILL CALL REPORT AND SHE WILL BE TRANSFERED VIA EMS ENTERED DATE: 08/21/20 13:13 CT COMMENT TYPE: Discharge Planning REVIEWER: Jess Jack SPOKE WITH SHANKAR AT [facility] ABOUT REFERRAL, I SENT THE REFERRAL TO [phone] SHE WILL GET BACK WITH ME CM TO FOLLOW AND ASSIST NEEDED ENTERED DATE: 08/20/20 14:15 CT COMMENT TYPE: Discharge Planning REVIEWER: Jess Jack CM met with patient to complete initial dc planning assessment. CM educated patient on the CM role and verbal consent given by patient to complete assessment. Patient lives at home with her and her 2 kids (6&3). She stated that she would like to go home and does not need inpatient psych. She said that this incident scared her and she realizes that she has a reason to live. She stated that she use to think that her kids just needed their dad, but since she stated that they have been crying for her and she knows that they need both parents. She stated that her and her have been together for 10 years and recently just moved into a brand new home. She states that Dr Palacios is her PCP. She states she see's Alysa at [facility] ( but only twice) because they keep witching her mental health person. She usually see's her once a month. She also see's Mary Beth Ahn her Therapist 2 times a month but has now asked to see him once a week. She has spoken to her about him giving her the medications. She can't keep up with them and then forgets to take them . She said that when she gets off her medications she gets bad. She was in [facility] back in 2019 and has been in [facility] back in 2016. She stated that she has a great relationship with her mom and dad. She they live around the corner. Her sister and brother in law live close by . She feels that she has a good support system. She really feels that she is safe to discharge home. I explained to her that I would call Dr Thompson and share her feelings now, but ultimately the MD will decide what and where she goes. IF she has to go to an inpatient psych, [facility] would be her choice because it is local. Patient denied known discharge needs at this time. She continues to have a 1:1 sitter. CM will continue to follow and will assist as needed with dc plans/needs. DCP REVIEW SUMMARY ANTICIPATED D/C DATE: EXPECTED LOS : 0 CASE STATUS: DCP Complete INITIAL REVIEW: 08/18/2020 INITIAL REVIEWER: Jess Jack FINAL DISCHARGE DISPOSITION: 89 : Discharged/Trans to a psychiatric distinct part unit of a hospital with a planned acute care FINAL REVIEWER: Jess Jack FINAL REVIEW DATE: 08/22/2020 DCP Focus Questions & Answers QUESTION: ANSWER : PATIENT: JESUS CHAPA ENCOUNTER: [id number] MEDICAL RECORD#: [id number] ADMISSION DATE: 08/20/2020 DISCHARGE DATE: 08/21/2020 ATTENDING MD: EARL CLEMENTS : AGE: 25 MARITAL STATUS: S DC PLAN ID: [id number] FACILITY: [facility] PRINTED ON: 08/25/20 12:43 CT All edits/amendments must be made on the electronic document DICTATION DATE: 08/25/201242 BIG 6 DEALER: BENI 08/25/201242 RPT#: [id number] DC DATE:08/21/20 STATUS: DIS IN [facility] [address] [place] [address] END OF REPORT
== END 2020-08-21 17:30 | disposition short-term general hospital (02) | DRG 502 ==
LOC: D.MS 15:58 → D.ER 15:58 → D.MS 18:51 → OBSVTIME 19:11 → D.MS 19:11 → D.ER 19:11 → D.MS 08-20 17:16
PROVIDERS: Family Medicine; Student in an Organized Health Care Education/Training Program; ADMIT Surgery; ATTEND Surgery
PROC: 0KQB0ZZ Repair Left Lower Arm and Wrist Muscle, Open Approach (ICD-10-PCS; principal; 2020-08-20)
DX: S56.822A Laceration of other muscles, fascia and tendons at forearm level, left arm, initial encounter (principal); F31.9 Bipolar disorder, unspecified; W26.9XXA Contact with unspecified sharp object(s), initial encounter; F12.90 Cannabis use, unspecified, uncomplicated; E87.6 Hypokalemia; F10.229 Alcohol dependence with intoxication, unspecified; Y90.6 Blood alcohol level of 120-199 mg/100 ml; F41.8 Other specified anxiety disorders; K58.9 Irritable bowel syndrome, unspecified; G62.9 Polyneuropathy, unspecified; I34.1 Nonrheumatic mitral (valve) prolapse; R00.0 Tachycardia, unspecified